=== PATIENT | female | born 1970 | race Two or more races ===

== ENCOUNTER 2023-02-03 05:00 | Day surgery (SDC) | payer OTHER ==
[~2023-02-03] VITALS: Ht 144.8 cm; Wt 63.5 kg
[~2023-02-03 05:00] MED LIST: ZOLADEX10.8 MG SQ
== END 2023-02-03 11:50 | disposition home or self-care (01) ==
LOC: CIR.AMB 05:00
PROVIDERS: ATTEND Plastic Surgery
DX: N60.81 Other benign mammary dysplasias of right breast (principal); N64.89 Other specified disorders of breast; R92.1 Mammographic calcification found on diagnostic imaging of breast; Z85.3 Personal history of malignant neoplasm of breast; Z87.891 Personal history of nicotine dependence